=== PATIENT | male | born 1970 | race Caucasian/White ===

== ENCOUNTER 2019-10-06 14:16 | Inpatient (IN) | payer BC ==
[~2019-10-06] VITALS: Ht 181.6 cm; Wt 125.4 kg
[2019-10-06] MEDS ORDERED: IV NORMAL SALINE 1000ML BAG 1,000 ML IV ONE (15:15)
[2019-10-06] MEDS ORDERED: fentaNYL PF VIAL 100 MCG/2 ML VIAL IV ONE (15:15)
[2019-10-06] MEDS ORDERED: ONDANSETRON PF 4 MG/2 ML VIAL. IV ONE (15:15)
--- NOTE | 2019-10-06 15:19 | PHYS DOC ---
Past Medical History Past Medical History: No Pertinent History Past Surgical History: Other Additional Past Surgical Histo: COLON RESECTION FROM A ABCESS, NOSE RECONSTRUCTION Smoking Status: Never Smoker Alcohol Use: Occasionally Adult General Chief Complaint Chief Complaint: ABDOMINAL PAIN HPI HPI Patient is a 48 year old male who presents with abdominal pain and bloating that has been ongoing since Wednesday. The patient states he's been having gas, and diarrhea since that time. The patient states he's been taking Pepto-Bismol and then tried a gas medicine this morning that made it worse. The patient denies any vomiting but states he's been having nausea. He states he feels like he is constipated. The patient also states he's been having significant abdominal bloating and his states he looks like is . The patient rates his pain laying in bed is 5 out of 10 in severity and sharp. The patient denies any fevers. The patient states he last ate at 645 this morning when he had a doughnut. The patient has a history of a colon resection, due to a abscess. Review of Systems Review of Systems Constitutional: Denies fever or chills [] Eyes: Denies change in visual acuity, redness, or eye pain [] HENT: Denies nasal congestion or sore throat [] Respiratory: Denies cough or shortness of breath [] Cardiovascular: No additional information not addressed in HPI [] GI: Reports abdominal pain, nausea, and diarrhea. Denies vomiting, bloody stools. : Denies dysuria or hematuria [] Musculoskeletal: Denies back pain or joint pain [] Integument: Denies rash or skin lesions [] Neurologic: Denies headache, focal weakness or sensory changes [] Endocrine: Denies polyuria or polydipsia [] Complete systems were reviewed and found to be within normal limits, except as documented in this note. Current Medications Current Medications Current Medications Medications (Trade) Dose Ordered Sig/Jacinto Start Time Stop Time Status Last Admin Dose Admin Fentanyl Citrate (Fentanyl 2ml Vial) 75 mcg 1X ONCE 10/06/19 15:15 10/06/19 15:34 DC 10/06/19 15:54 75 MCG Info (CONTRAST GIVEN -- Rx MONITORING) 1 each PRN DAILY PRN 10/06/19 16:15 10/08/19 16:14 Iohexol (Omnipaque 300 Mg/ml) 75 ml 1X ONCE 10/06/19 16:15 10/06/19 16:16 DC 10/06/19 16:30 75 ML Morphine Sulfate (Morphine Sulfate) 4 mg PRN Q2HR PRN 10/06/19 17:45 10/07/19 17:44 UNV Ondansetron HCl (Zofran) 4 mg PRN Q8HRS PRN 10/06/19 17:45 10/07/19 17:44 UNV Sodium Chloride 1,000 ml @ 1,000 mls/hr 1X ONCE 10/06/19 15:15 10/06/19 16:14 DC 10/06/19 15:54 1,000 MLS/HR Allergies Allergies Allergies Coded Allergies Type Severity Reaction Last Updated Verified No Known Drug Allergies 10/06/19 No Physical Exam Physical Exam Constitutional: Well developed, well nourished, no acute distress, non-toxic appearance. [] HENT: Normocephalic, atraumatic, bilateral external ears normal, oropharynx moist, no oral exudates, nose normal. [] Eyes: conjunctiva normal, no discharge. [] Neck: Normal range of motion, no tenderness, supple, no stridor. [] Cardiovascular:Heart rate regular rhythm, no murmur [] Lungs & Thorax: Bilateral breath sounds clear to auscultation [] Abdomen: Bowel sounds are hyporeactive, distended abdomen, tenderness to upper abdomen diffusely, no masses, no pulsatile masses. [] Skin: Warm, dry, no erythema, no rash. [] Neurologic: Alert and oriented X 3, normal motor function, normal sensory function, no focal deficits noted. [] Psychologic: Affect normal, judgement normal, mood normal. [] Current Patient Data Vital Signs Vital Signs Date Time Temp Pulse Resp B/P (MAP) Pulse Ox O2 Delivery O2 Flow Rate FiO2 10/06/19 15:54 16 99 Room Air 10/06/19 15:00 98.2 90 205/97 (133) 98.2 Lab Values Laboratory Tests Test 10/06/19 15:45 10/06/19 15:57 White Blood Count 12.5 x10^3/uL (4.0-11.0) H Red Blood Count 5.47 x10^6/uL (4.30-5.70) Hemoglobin 16.6 g/dL (13.0-17.5) Hematocrit 47.3 % (39.0-53.0) Mean Corpuscular Volume 87 fL (79-100) Mean Corpuscular Hemoglobin 31 pg (25-35) Mean Corpuscular Hemoglobin Concent 35 g/dL (31-37) Red Cell Distribution Width 13.1 % (11.5-14.5) Platelet Count 264 x10^3/uL (140-400) Neutrophils (%) (Auto) 84 % (31-73) H Lymphocytes (%) (Auto) 7 % (24-48) L Monocytes (%) (Auto) 7 % (0-9) Eosinophils (%) (Auto) 2 % (0-3) Basophils (%) (Auto) 0 % (0-3) Neutrophils # (Auto) 10.5 x10^3/uL (1.8-7.7) H Lymphocytes # (Auto) 0.9 x10^3/uL (1.0-4.8) L Monocytes # (Auto) 0.9 x10^3/uL (0.0-1.1) Eosinophils # (Auto) 0.3 x10^3/uL (0.0-0.7) Basophils # (Auto) 0.0 x10^3/uL (0.0-0.2) Sodium Level 137 mmol/L (136-145) Potassium Level 4.1 mmol/L (3.5-5.1) Chloride Level 102 mmol/L (98-107) Carbon Dioxide Level 26 mmol/L (21-32) Anion Gap 9 (6-14) Blood Urea Nitrogen 13 mg/dL (8-26) Creatinine 1.1 mg/dL (0.7-1.3) Estimated GFR (Cockcroft-Gault) 71.1 BUN/Creatinine Ratio 12 (6-20) Glucose Level 107 mg/dL (70-99) H Lactic Acid Level 0.8 mmol/L (0.4-2.0) Calcium Level 8.9 mg/dL (8.5-10.1) Total Bilirubin 1.0 mg/dL (0.2-1.0) Aspartate Amino Transferase (AST) 23 U/L (15-37) Alanine Aminotransferase (ALT) 45 U/L (16-63) Alkaline Phosphatase 71 U/L (46-116) Total Protein 7.6 g/dL (6.4-8.2) Albumin 3.9 g/dL (3.4-5.0) Albumin/Globulin Ratio 1.1 (1.0-1.7) Lipase 144 U/L (73-393) Urine Collection Type Unknown Urine Color Yellow Urine Clarity Clear Urine pH 5.0 Urine Specific [place] >=1.030 Urine Protein Negative mg/dL (NEG-TRACE) Urine Glucose (UA) Negative mg/dL (NEG) Urine Ketones (Stick) Negative mg/dL (NEG) Urine Blood Negative (NEG) Urine Nitrite Negative (NEG) Urine Bilirubin Negative (NEG) Urine Urobilinogen Dipstick 0.2 mg/dL (0.2 mg/dL) Urine Leukocyte Esterase Negative (NEG) Urine RBC 0 /HPF (0-2) Urine WBC 0 /HPF (0-4) Urine Bacteria 0 /HPF (0-FEW) Urine Mucus Marked /LPF Laboratory Tests 10/06/19 15:45 Laboratory Tests 10/06/19 15:45 EKG EKG [][facility] [address] [facility] [place] [address] IMAGING REPORT Signed PATIENT: LJ TORRES ACCOUNT: [id number] : 1970 LOCATION: ER AGE: 48 SEX: M EXAM STATUS: REG ER ORD. PHYSICIAN: BRIAN CERVANTES APRN REASON: upper abd pain, abd bloating hx of colon resection, abscess PROCEDURE: CT ABD PELV W/ IV CONTRST ONLY Exam: CT of abdomen and pelvis with contrast INDICATION: Upper abdominal pain TECHNIQUE: Sequential axial images through the abdomen and pelvis obtained following the administration of 75 mL of Omni 300 IV contrast. Sagittal and coronal reformatted images were reconstructed from the axial data and reviewed. Comparisons: None FINDINGS: Heart size is normal. No pericardial effusion. Visualized lung bases are clear. No pleural effusion. Liver, spleen, pancreas, gallbladder and adrenals are unremarkable. Kidneys demonstrate symmetric enhancement. No perinephric inflammation or hydronephrosis. No renal or ureteral calculi are identified. Bladder is decompressed not well evaluated. Prostate is not enlarged. Surgical changes of right hemicolectomy with a right upper quadrant ileocolic anastomosis. There are several loops of mildly dilated loops of small bowel noted diffusely throughout the abdomen. No distinct transition point to decompressed bowel is identified. No free intra-abdominal air or fluid. Mild amount of stranding is noted within the right lower quadrant mesentery surrounding loops of small bowel. Abdominal aorta has a normal course and caliber. Abdominal vasculature is patent. No enlarged intra-abdominal lymph nodes are identified. No suspicious osseous lesions or acute fractures. Bilateral pars interarticularis defect at L5 with grade 1 anterolisthesis of L5 on S1. IMPRESSION: 1. Postsurgical changes of right hemicolectomy with right upper quadrant ileocolic anastomosis. 2. There are several loops of small bowel distal that are mildly dilated with diffuse wall thickening. No transition to decompressed bowel is identified. Findings may represent a severe enteritis versus developing/partial obstruction. Continued radiographic follow-up is recommended. Exposure: One or more of the following in the visualized dose reduction techniques were utilized for this examination: 1. Automated exposure control 2. Adjustment of the MA and/or KV according to patient size 3. Use of iterative of reconstructive technique Electronically signed by: Yareli Breen MD (10/06/2019 4:53 PM) [id number] DICTATED and SIGNED BY: YARELI BREEN MD DATE: 10/06/19 1653 Radiology/Procedures Radiology/Procedures [] Course & Med Decision Making Course & Med Decision Making Pertinent Labs and Imaging studies reviewed. (See chart for details) Will get Labs, CT, and give supportive care. Labs are unremarkable with exception of WBC of 12.5 CT shows: IMPRESSION: 1. Postsurgical changes of right hemicolectomy with right upper quadrant ileocolic anastomosis. 2. There are several loops of small bowel distal that are mildly dilated with diffuse wall thickening. No transition to decompressed bowel is identified. Findings may represent a severe enteritis versus developing/partial obstruction. Continued radiographic follow-up is recommended. Will consult GI for additional instruction. Discussed with Dr. Graves who recommends admission. Will call Dr. Mark for admission. Will hold of NG tube for now to wait for evaluation by general surgery. Discussed with Dr. Mark who accepts admission. Dragon Disclaimer Dragon Disclaimer This electronic medical record was generated, in whole or in part, using a voice recognition dictation system. Departure Departure Impression: Primary Impression: Partial small bowel obstruction Disposition: ADMITTED INPATIENT Admitting Physician: UMANG Condition: STABLE Referrals: NO PCP (PCP) BRIAN CERVANTES APRN Oct 06, 2019 15:19
[2019-10-06 16:00] LABS: BASO % 0 % (0-3); EOS # 0.3 x10^3/uL (0.0-0.7); EOS % 2 % (0-3); HEMATOCRIT 47.3 % (39.0-53.0); HEMOGLOBIN 16.6 g/dL (13.0-17.5); LYMPH # 0.9 x10^3/uL (1.0-4.8); LYMPH % 7 % (24-48); MEAN CORPUSCULAR HEMOGLOBIN 31 pg (25-35); MEAN CORPUSCULAR HGB CONC 35 g/dL (31-37); MEAN CORPUSCULAR VOLUME 87 fL (79-100); MONO # 0.9 x10^3/uL (0.0-1.1); MONO % 7 % (0-9); NEUT # 10.5 x10^3/uL (1.8-7.7); NEUT % 84 % (31-73); PLATELET COUNT 264 x10^3/uL (140-400); RED BLOOD COUNT 5.47 x10^6/uL (4.30-5.70); RED CELL DISTRIBUTION WIDTH 13.1 % (11.5-14.5); WHITE BLOOD COUNT 12.5 x10^3/uL (4.0-11.0)
[2019-10-06 16:03] LABS: CALCIUM 8.9 mg/dL (8.5-10.1); CREATININE 1.1 mg/dL (0.7-1.3); GFR 71.1; POTASSIUM 4.1 mmol/L (3.5-5.1)
[2019-10-06 16:05] LABS: BILIRUBIN,URINE NEGATIVE (NEG); CLARITY,URINE CLEAR; COLOR,URINE YELLOW; NITRITE,URINE NEGATIVE (NEG); PROTEIN,URINE NEGATIVE (NEG-TRACE); UROBILINOGEN,URINE 0.2 mg/dL (0.2 mg/dL)
[2019-10-06 16:15] LABS: BACTERIA,URINE 0 /HPF (0-FEW); RBC,URINE 0 /HPF (0-2); WBC,URINE 0 /HPF (0-4)
[2019-10-06] MEDS ORDERED: IOHEXOL 300 MG/ML 100ML VIAL. IV ONE (16:15)
[2019-10-06] MEDS ORDERED: CONTRAST GIVEN. MC PRN (16:15)
[2019-10-06 16:18] LABS: ALBUMIN 3.9 g/dL (3.4-5.0); ALBUMIN/GLOBULIN RATIO 1.1 (1.0-1.7); TOTAL PROTEIN 7.6 g/dL (6.4-8.2)
--- NOTE | 2019-10-06 16:56 | RAD ---
Exam: CT of abdomen and pelvis with contrast INDICATION: Upper abdominal pain TECHNIQUE: Sequential axial images through the abdomen and pelvis obtained following the administration of 75 mL of Omni 300 IV contrast. Sagittal and coronal reformatted images were reconstructed from the axial data and reviewed. Comparisons: None FINDINGS: Heart size is normal. No pericardial effusion. Visualized lung bases are clear. No pleural effusion. Liver, spleen, pancreas, gallbladder and adrenals are unremarkable. Kidneys demonstrate symmetric enhancement. No perinephric inflammation or hydronephrosis. No renal or ureteral calculi are identified. Bladder is decompressed not well evaluated. Prostate is not enlarged. Surgical changes of right hemicolectomy with a right upper quadrant ileocolic anastomosis. There are several loops of mildly dilated loops of small bowel noted diffusely throughout the abdomen. No distinct transition point to decompressed bowel is identified. No free intra-abdominal air or fluid. Mild amount of stranding is noted within the right lower quadrant mesentery surrounding loops of small bowel. Abdominal aorta has a normal course and caliber. Abdominal vasculature is patent. No enlarged intra-abdominal lymph nodes are identified. No suspicious osseous lesions or acute fractures. Bilateral pars interarticularis defect at L5 with grade 1 anterolisthesis of L5 on S1. IMPRESSION: 1. Postsurgical changes of right hemicolectomy with right upper quadrant ileocolic anastomosis. 2. There are several loops of small bowel distal that are mildly dilated with diffuse wall thickening. No transition to decompressed bowel is identified. Findings may represent a severe enteritis versus developing/partial obstruction. Continued radiographic follow-up is recommended. Exposure: One or more of the following in the visualized dose reduction techniques were utilized for this examination: 1. Automated exposure control 2. Adjustment of the MA and/or KV according to patient size 3. Use of iterative of reconstructive technique Electronically signed by: Yareli Zhong MD (10/06/2019 4:53 PM) [id number]
[2019-10-06] MEDS ORDERED: MORPHINE SULFATE 4 MG/ML VIAL. IV PRN (17:45)
[2019-10-06] MEDS ORDERED: ONDANSETRON PF 4 MG/2 ML VIAL. IV PRN (17:45)
[2019-10-06 19:00] VITALS: BP 152/84
[2019-10-06] MEDS ORDERED: ONDANSETRON PF 4 MG/2 ML VIAL. IVP PRN (20:45)
[2019-10-06 23:00] VITALS: BP 129/77
[2019-10-07 03:00] VITALS: BP 117/73
[2019-10-07 07:00] VITALS: BP 135/80
--- NOTE | 2019-10-07 09:30 | PDOC2 ---
CONSULT Date of Consult Date of Consult DATE: 10/07/19 TIME: 09:26 Reason for Consult Reason for Consult: abdominal pain Referring Physician Referring Physician: Dr Mark Identification/Chief Complaint Chief Complaint abdominal pain Source Source: Chart review, Patient History of Present Illness Reason for Visit: John is a 48 yo male who some 20+ years ago had a right colon resection for "perforated bowel". He has been well recently when he developed abdominal pain and nausea. Past Medical History Cardiovascular: No pertinent hx Pulmonary: No pertinent hx Past Surgical History Past Surgical History: Colon Resection Current Problem List Problem List Problems Medical Problems: (1) Partial small bowel obstruction Status: Acute Current Medications Current Medications Current Medications Sodium Chloride 1,000 ml @ 1,000 mls/hr 1X ONCE IV Last administered on 10/06/19at 15:54; Start 10/06/19 at 15:15; Stop 10/06/19 at 16:14; Status DC Ondansetron HCl (Zofran) 4 mg 1X ONCE IV Last administered on 10/06/19at 15:54; Start 10/06/19 at 15:15; Stop 10/06/19 at 15:34; Status DC Fentanyl Citrate (Fentanyl 2ml Vial) 75 mcg 1X ONCE IV Last administered on 10/06/19at 15:54; Start 10/06/19 at 15:15; Stop 10/06/19 at 15:34; Status DC Iohexol (Omnipaque 300 Mg/ml) 75 ml 1X ONCE IV Last administered on 10/06/19at 16:30; Start 10/06/19 at 16:15; Stop 10/06/19 at 16:16; Status DC Info (CONTRAST GIVEN -- Rx MONITORING) 1 each PRN DAILY PRN MC SEE COMMENTS; Start 10/06/19 at 16:15; Stop 10/08/19 at 16:14 Ondansetron HCl (Zofran) 4 mg PRN Q8HRS PRN IV NAUSEA/VOMITING Last admi nistered on 10/06/19at 20:08; Start 10/06/19 at 17:45; Stop 10/06/19 at 20:37; Status DC Morphine Sulfate (Morphine Sulfate) 4 mg PRN Q2HR PRN IV PAIN Last administered on 10/06/19at 20:07; Start 10/06/19 at 17:45; Stop 10/07/19 at 17:44 Ondansetron HCl (Zofran) 4 mg PRN Q4HRS PRN IVP NAUSEA/VOMITING 1ST CHOICE; Start 10/06/19 at 20:45 Active Scripts Active Reported No Known Medications Prior To Admisstion (Info) Each 1 Each MC 1X Allergies Allergies: Coded Allergies: Penicillins (Verified Allergy, Intermediate, Hives, 10/06/19) ROS Review of System negative with exception of present complaints Physical Exam General: Alert, Oriented X3, No acute distress HEENT: Atraumatic Lungs: Normal air movement Heart: Regular rate Abdomen: Soft, No tenderness, Other (well healed midline scar) Neuro: Normal speech Vitals VITALS Vital Signs Date Time Temp Pulse Resp B/P (MAP) Pulse Ox O2 Delivery O2 Flow Rate FiO2 10/07/19 08:00 Room Air 10/07/19 07:00 97.4 73 18 135/80 (98) 97 97.4 Labs Labs Laboratory Tests Test 10/06/19 15:45 10/06/19 15:57 White Blood Count 12.5 x10^3/uL (4.0-11.0) Red Blood Count 5.47 x10^6/uL (4.30-5.70) Hemoglobin 16.6 g/dL (13.0-17.5) Hematocrit 47.3 % (39.0-53.0) Mean Corpuscular Volume 87 fL (79-100) Mean Corpuscular Hemoglobin 31 pg (25-35) Mean Corpuscular Hemoglobin Concent 35 g/dL (31-37) Red Cell Distribution Width 13.1 % (11.5-14.5) Platelet Count 264 x10^3/uL (140-400) Neutrophils (%) (Auto) 84 % (31-73) Lymphocytes (%) (Auto) 7 % (24-48) Monocytes (%) (Auto) 7 % (0-9) Eosinophils (%) (Auto) 2 % (0-3) Basophils (%) (Auto) 0 % (0-3) Neutrophils # (Auto) 10.5 x10^3/uL (1.8-7.7) Lymphocytes # (Auto) 0.9 x10^3/uL (1.0-4.8) Monocytes # (Auto) 0.9 x10^3/uL (0.0-1.1) Eosinophils # (Auto) 0.3 x10^3/uL (0.0-0.7) Basophils # (Auto) 0.0 x10^3/uL (0.0-0.2) Sodium Level 137 mmol/L (136-145) Potassium Level 4.1 mmol/L (3.5-5.1) Chloride Level 102 mmol/L (98-107) Carbon Dioxide Level 26 mmol/L (21-32) Anion Gap 9 (6-14) Blood Urea Nitrogen 13 mg/dL (8-26) Creatinine 1.1 mg/dL (0.7-1.3) Estimated GFR (Cockcroft-Gault) 71.1 BUN/Creatinine Ratio 12 (6-20) Glucose Level 107 mg/dL (70-99) Lactic Acid Level 0.8 mmol/L (0.4-2.0) Calcium Level 8.9 mg/dL (8.5-10.1) Total Bilirubin 1.0 mg/dL (0.2-1.0) Aspartate Amino Transf (AST/SGOT) 23 U/L (15-37) Alanine Aminotransferase (ALT/SGPT) 45 U/L (16-63) Alkaline Phosphatase 71 U/L (46-116) Total Protein 7.6 g/dL (6.4-8.2) Albumin 3.9 g/dL (3.4-5.0) Albumin/Globulin Ratio 1.1 (1.0-1.7) Lipase 144 U/L (73-393) Urine Collection Type Unknown Urine Color Yellow Urine Clarity Clear Urine pH 5.0 Urine Specific [place] >=1.030 Urine Protein Negative mg/dL (NEG-TRACE) Urine Glucose (UA) Negative mg/dL (NEG) Urine Ketones (Stick) Negative mg/dL (NEG) Urine Blood Negative (NEG) Urine Nitrite Negative (NEG) Urine Bilirubin Negative (NEG) Urine Urobilinogen Dipstick 0.2 mg/dL (0.2 mg/dL) Urine Leukocyte Esterase Negative (NEG) Urine RBC 0 /HPF (0-2) Urine WBC 0 /HPF (0-4) Urine Bacteria 0 /HPF (0-FEW) Urine Mucus Marked /LPF Laboratory Tests Test 10/06/19 15:45 10/06/19 15:57 White Blood Count 12.5 x10^3/uL (4.0-11.0) Red Blood Count 5.47 x10^6/uL (4.30-5.70) Hemoglobin 16.6 g/dL (13.0-17.5) Hematocrit 47.3 % (39.0-53.0) Mean Corpuscular Volume 87 fL (79-100) Mean Corpuscular Hemoglobin 31 pg (25-35) Mean Corpuscular Hemoglobin Concent 35 g/dL (31-37) Red Cell Distribution Width 13.1 % (11.5-14.5) Platelet Count 264 x10^3/uL (140-400) Neutrophils (%) (Auto) 84 % (31-73) Lymphocytes (%) (Auto) 7 % (24-48) Monocytes (%) (Auto) 7 % (0-9) Eosinophils (%) (Auto) 2 % (0-3) Basophils (%) (Auto) 0 % (0-3) Neutrophils # (Auto) 10.5 x10^3/uL (1.8-7.7) Lymphocytes # (Auto) 0.9 x10^3/uL (1.0-4.8) Monocytes # (Auto) 0.9 x10^3/uL (0.0-1.1) Eosinophils # (Auto) 0.3 x10^3/uL (0.0-0.7) Basophils # (Auto) 0.0 x10^3/uL (0.0-0.2) Sodium Level 137 mmol/L (136-145) Potassium Level 4.1 mmol/L (3.5-5.1) Chloride Level 102 mmol/L (98-107) Carbon Dioxide Level 26 mmol/L (21-32) Anion Gap 9 (6-14) Blood Urea Nitrogen 13 mg/dL (8-26) Creatinine 1.1 mg/dL (0.7-1.3) Estimated GFR (Cockcroft-Gault) 71.1 BUN/Creatinine Ratio 12 (6-20) Glucose Level 107 mg/dL (70-99) Lactic Acid Level 0.8 mmol/L (0.4-2.0) Calcium Level 8.9 mg/dL (8.5-10.1) Total Bilirubin 1.0 mg/dL (0.2-1.0) Aspartate Amino Transf (AST/SGOT) 23 U/L (15-37) Alanine Aminotransferase (ALT/SGPT) 45 U/L (16-63) Alkaline Phosphatase 71 U/L (46-116) Total Protein 7.6 g/dL (6.4-8.2) Albumin 3.9 g/dL (3.4-5.0) Albumin/Globulin Ratio 1.1 (1.0-1.7) Lipase 144 U/L (73-393) Urine Collection Type Unknown Urine Color Yellow Urine Clarity Clear Urine pH 5.0 Urine Specific [place] >=1.030 Urine Protein Negative mg/dL (NEG-TRACE) Urine Glucose (UA) Negative mg/dL (NEG) Urine Ketones (Stick) Negative mg/dL (NEG) Urine Blood Negative (NEG) Urine Nitrite Negative (NEG) Urine Bilirubin Negative (NEG) Urine Urobilinogen Dipstick 0.2 mg/dL (0.2 mg/dL) Urine Leukocyte Esterase Negative (NEG) Urine RBC 0 /HPF (0-2) Urine WBC 0 /HPF (0-4) Urine Bacteria 0 /HPF (0-FEW) Urine Mucus Marked /LPF Images Images CT done on admission is reviewed Assessment/Plan Assessment/Plan abominal pain, improved diarrhea s/p remote right colon resection small bowel wall thickness, enteritis/IBD clinically improved will start clear liquids, check stool specimen no acute surgical needs will follow Thanks for consult LAITH BONILLA MD Oct 07, 2019 09:30
[2019-10-07 11:00] VITALS: BP 125/75
--- NOTE | 2019-10-07 12:48 | HP ---
ADMIT DATE: 10/06/2019 CHIEF COMPLAINT: Abdominal pain. HISTORY OF PRESENT ILLNESS: The patient is a pleasant 48-year-old male who presented with abdominal pain with associated bloating. He states he had a surgery about 20 years ago for a partial bowel resection after he had a spontaneous perforation, now it appears he has a small bowel obstruction. I admitted the patient overnight for consultation with General Surgery. PAST MEDICAL HISTORY: Previous colon resection for bowel perforation, nose reconstruction. ALLERGIES: PENICILLIN. FAMILY HISTORY: Coronary artery disease. SOCIAL HISTORY: He does not drink, smoke or take drugs. MEDICATIONS: Reviewed, please refer to the MRAD. REVIEW OF SYSTEMS: GENERAL: No history of weight change, weakness or fevers. SKIN: No bruising, hair changes or rashes. EYES: No blurred, double or loss of vision. NOSE AND THROAT: No history of nosebleeds, hoarseness or sore throat. HEART: No history of palpitations, chest pain or shortness of breath on exertion. LUNGS: Denies cough, hemoptysis, wheezing or shortness of breath. GASTROINTESTINAL: Denies changes in appetite, nausea, vomiting, diarrhea or constipation. GENITOURINARY: No history of frequency, urgency, hesitancy or nocturia. NEUROLOGIC: Denies history of numbness, tingling, tremor or weakness. PSYCHIATRIC: No history of panic, anxiety or depression. ENDOCRINE: No history of heat or cold intolerance, polyuria or polydipsia. EXTREMITIES: Denies muscle weakness, joint pain, pain on walking or stiffness. PHYSICAL EXAMINATION: VITALS: Within normal limits and are stable. GENERAL: No apparent distress. Alert and oriented. HEENT: Normal cephalic atraumatic, external auditory canals are patent EYES: Extraocular muscles are intact, pupils are equally round and reactive to light and accommodation MUSKULOSKELETAL: Well developed, well nourished, good range of motion ENDOCRINE: No thyromegaly was palpated LYMPHATICS: No cervical chain or axillary nodes were noted HEMATOPOIETIC: No bruising NECK: Supple, no JVD, no thyromegaly was noted. LUNGS: Clear to auscultation in all lung beckman without rhonchi or wheezing. HEART: RRR, S1, S2 present. Peripheral pulses intact, no obvious murmurs were noted. ABDOMEN: Soft, nontender. Positive bowel sounds no organomegaly, normal bowel sounds. EXTREMITIES: Without any cyanosis, clubbing, or edema. Pedal pulses intact, Homans sign is negative. NEUROLOGIC: Normal speech, normal tone. A and O x 3, moves all extremities, no obvious focal deficits. PSYCHIATRIC: Normal affect, normal mood. Stable. SKIN: No ulcerations or rashes, good skin turgor, no jaundice. VASCULAR: Good capillary refill, neurovascular bundle appears to be intact. ASSESSMENT AND PLAN: Resolving small-bowel obstruction, clinically looks great, he wants to eat. We have consulted General Surgery if okay with him, I would like to start diet. Perhaps, we can let him go home soon if he tolerates his diet. DISPOSITION: Home. ACTIVITY: As tolerated. DIET: Low sodium. TOTAL TIME: 32 minutes. ERICH UPTON DO DR: ANGELA/bhumi JOB#: [id number] / [id number]
[2019-10-07 15:00] VITALS: BP 138/76
[2019-10-07 19:00] VITALS: BP 144/82
[2019-10-07 23:06] VITALS: BP 121/66
[2019-10-08 03:02] VITALS: BP 127/69
[2019-10-08 07:00] VITALS: BP 137/71
[2019-10-08 11:00] VITALS: BP 135/68
--- NOTE | 2019-10-08 13:50 | NUR ---
DISCHARGE INSTRUCTIONS GIVEN, QUESTIONS AND CONCERNS ANSWERED, PATIENT VERBALIZED UNDERSTANDING OF DISCHARGE INFORMATION INCLUDING FOLLOWING UP WITH HIS PRIMARY PROVIDER IN 1-2 WEEKS, ALL PERSONAL BELONGINGS GATHERED BY THE PATIENT AND HIS AND PLACED IN BAGS FOR DISCHARGE.
--- NOTE | 2019-10-08 13:58 | PDOC ---
SURGICAL PROGRESS NOTE Subjective on his way out no c/o Vital Signs Vital Signs Date Time Temp Pulse Resp B/P (MAP) Pulse Ox O2 Delivery O2 Flow Rate FiO2 10/08/19 11:00 97.8 68 19 135/68 (90) 98 Room Air 97.8 I&O Intake and Output 10/08/19 07:00 Intake Total 360 ml Balance 360 ml Intake Oral 360 ml # Voids 2 PATIENT HAS A BRUNO: No General: Alert, Oriented X3, No acute distress Labs Laboratory Tests Test 10/06/19 15:45 10/06/19 15:57 White Blood Count 12.5 x10^3/uL (4.0-11.0) Red Blood Count 5.47 x10^6/uL (4.30-5.70) Hemoglobin 16.6 g/dL (13.0-17.5) Hematocrit 47.3 % (39.0-53.0) Mean Corpuscular Volume 87 fL (79-100) Mean Corpuscular Hemoglobin 31 pg (25-35) Mean Corpuscular Hemoglobin Concent 35 g/dL (31-37) Red Cell Distribution Width 13.1 % (11.5-14.5) Platelet Count 264 x10^3/uL (140-400) Neutrophils (%) (Auto) 84 % (31-73) Lymphocytes (%) (Auto) 7 % (24-48) Monocytes (%) (Auto) 7 % (0-9) Eosinophils (%) (Auto) 2 % (0-3) Basophils (%) (Auto) 0 % (0-3) Neutrophils # (Auto) 10.5 x10^3/uL (1.8-7.7) Lymphocytes # (Auto) 0.9 x10^3/uL (1.0-4.8) Monocytes # (Auto) 0.9 x10^3/uL (0.0-1.1) Eosinophils # (Auto) 0.3 x10^3/uL (0.0-0.7) Basophils # (Auto) 0.0 x10^3/uL (0.0-0.2) Sodium Level 137 mmol/L (136-145) Potassium Level 4.1 mmol/L (3.5-5.1) Chloride Level 102 mmol/L (98-107) Carbon Dioxide Level 26 mmol/L (21-32) Anion Gap 9 (6-14) Blood Urea Nitrogen 13 mg/dL (8-26) Creatinine 1.1 mg/dL (0.7-1.3) Estimated GFR (Cockcroft-Gault) 71.1 BUN/Creatinine Ratio 12 (6-20) Glucose Level 107 mg/dL (70-99) Lactic Acid Level 0.8 mmol/L (0.4-2.0) Calcium Level 8.9 mg/dL (8.5-10.1) Total Bilirubin 1.0 mg/dL (0.2-1.0) Aspartate Amino Transf (AST/SGOT) 23 U/L (15-37) Alanine Aminotransferase (ALT/SGPT) 45 U/L (16-63) Alkaline Phosphatase 71 U/L (46-116) Total Protein 7.6 g/dL (6.4-8.2) Albumin 3.9 g/dL (3.4-5.0) Albumin/Globulin Ratio 1.1 (1.0-1.7) Lipase 144 U/L (73-393) Urine Collection Type Unknown Urine Color Yellow Urine Clarity Clear Urine pH 5.0 Urine Specific [place] >=1.030 Urine Protein Negative mg/dL (NEG-TRACE) Urine Glucose (UA) Negative mg/dL (NEG) Urine Ketones (Stick) Negative mg/dL (NEG) Urine Blood Negative (NEG) Urine Nitrite Negative (NEG) Urine Bilirubin Negative (NEG) Urine Urobilinogen Dipstick 0.2 mg/dL (0.2 mg/dL) Urine Leukocyte Esterase Negative (NEG) Urine RBC 0 /HPF (0-2) Urine WBC 0 /HPF (0-4) Urine Bacteria 0 /HPF (0-FEW) Urine Mucus Marked /LPF Problem List Problems Medical Problems: (1) Partial small bowel obstruction Status: Acute Assessment/Plan sx resolved f/u prn LAITH BONILLA MD Oct 08, 2019 13:58
--- NOTE | 2019-10-08 14:00 | NUR ---
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
--- NOTE | 2019-10-08 14:16 | PDOC ---
[facility] PROGRESS NOTE Chief Complaint Chief Complaint Resolving small-bowel obstruction Abdominal Pain Diarrhea S/p Right colon resection History of Present Illness History of Present Illness 10/08/2019 Pt seen and examined Chart reviewed silvino care discussed with nursing staff. Pt laying comfortably in bed, NAD. He would like to go home. He has tolerated slow advance of his diet. Surgery has cleared him also. Vitals/I&O Vitals/I&O: Vital Signs Date Time Temp Pulse Resp B/P (MAP) Pulse Ox O2 Delivery O2 Flow Rate FiO2 10/08/19 11:00 97.8 68 19 135/68 (90) 98 Room Air 97.8 I & O 10/07/19 10/07/19 10/08/19 15:00 23:00 07:00 Intake Total 360 ml Balance 360 ml Physical Exam General: Alert, Oriented X3, No acute distress Heart: Regular rate Lungs: Clear Abdomen: Normal bowel sounds, Soft, No tenderness, Other (well healed midline scar) Extremities: No clubbing, No cyanosis Skin: No rashes Review of Systems Review of Systems: denies chest pain or soa Assessment and Plan Assessmemt and Plan Problems Medical Problems: (1) Partial small bowel obstruction Status: Acute ASSESSMENT: Resolving small-bowel obstruction Abdominal Pain Diarrhea S/p Right colon resection PLAN: -Surgery following -ADAT -Continue Home meds -DVT ppx -Full code -Probable discharge today, if tolerating diet. Comment Review of Relevant I have reviewed the following items tianna (where applicable) has been applied. ERICH UPTON III, DO Oct 08, 2019 14:16
--- NOTE | 2019-10-09 09:04 | DS ---
DATE OF DISCHARGE: 10/08/2019 ADMISSION DIAGNOSIS: Small-bowel obstruction. DISCHARGE DIAGNOSIS: Resolving small-bowel obstruction. HOSPITAL COURSE: The patient is a pleasant middle-aged male, who presented with a small-bowel obstruction. We admitted the patient, consulted General Surgery and GI. Over the next couple of days his small bowel obstruction resolved. We started his diet. He did well. We discharged to home with close outpatient followup. DISPOSITION: Home. ACTIVITY: As tolerated. DIET: Low sodium. MEDICATIONS: Please see MRAD. TOTAL TIME: 32 minutes. ERICH UPTON DO DR: ANGELA/bhumi JOB#: [id number] / [id number]
== END 2019-10-08 14:00 | disposition home or self-care (01) | DRG 392 ==
LOC: ER 14:16 → 5 SOUTH 18:17
PROVIDERS: ADMIT Internal Medicine; ATTEND Internal Medicine
DX: K58.9 Irritable bowel syndrome, unspecified (principal); K56.600 Partial intestinal obstruction, unspecified as to cause; Z82.49 Family history of ischemic heart disease and other diseases of the circulatory system; Z90.49 Acquired absence of other specified parts of digestive tract; Z79.899 Other long term (current) drug therapy; Z88.0 Allergy status to penicillin
CPT/HCPCS: 36415; 74177; 80053; 81001; 83605; 83690; 85025; 87045; 96361; 96374; 96375; 99285; J2270; J2405; J3010; J7030; Q9967; G0378